=== PATIENT | female | born 1995 | race Caucasian/White ===

== ENCOUNTER 2020-07-08 15:45 | Emergency (ER) | payer BC, SELFPAY ==
[2020-07-08 16:07] VITALS: BP 104/79; PULSE 105; RESP 14; TEMP 36.4; O2SAT 100
--- NOTE | 2020-07-08 16:28 | ED.URI ---
HPI - URI/Sore Throat General Chief Complaint: Upper Respiratory Infection Stated Complaint: SORE THROAT Source: patient Mode of arrival: ambulatory Limitations: no limitations History of Present Illness HPI Narrative: 24-year-old female presents to [facility] with complaints of sore throat, dry cough, runny nose, nasal congestion, body aches and chills for the past 2 to 3 days. Patient's roommate currently has similar symptoms. Patient has been taking [id number] DayQuil and NyQuil with minimal relief. Patient is a non-smoker. Patient denies recent travel. Patient denies fever, nausea, vomiting, diarrhea, shortness of breath or wheezing. MD elicited complaint: cough, sore throat, rhinorrhea and nasal congestion Onset (ago): day(s) (3) Consistency: constant Able to tolerate fluids by mouth: Yes Treatments prior to arrival: cold medicine Related Data Home Medications Medication Instructions Recorded Confirmed norgestimate-ethinyl estradiol 1 tablet PO DAILY 07/08/20 07/08/20 [Tri-Sprintec (28)] Allergies Allergy/AdvReac Type Severity Reaction Status Date / Time No Known Drug Allergies Allergy Unknown none Verified 07/08/20 16:05 Review of Systems Constitutional: Constitutional: Reports chills, Denies fatigue, Denies fever(s) and Denies weakness ENT: Denies dysphagia, Denies dizziness, Denies epistaxis, Reports nasal congestion and Reports sore throat Comments: Rhinorrhea Respiratory: Respiratory: Denies chest congestion, Reports cough, Denies dyspnea and Denies wheezing Gastrointestinal: Gastrointestinal: Denies abdominal pain, Denies constipation, Denies diarrhea, Denies nausea and Denies vomiting Integumentary/Breasts: Skin/Breast: Denies rash Neurologic: Denies dizziness PMFSH Past Medical History Medical History (Updated 07/08/20 @ 16:35 by Yadira Matthews APRN) Irritable bowel disease Social History Social History (Updated 07/08/20 @ 16:30 by Yadira Matthews APRN) Smoking status: Never smoker Comments At time of signature, I agree with nursing past medical, surgical, social and family history. There is no relevant family history pertinent to the presenting complaint. Exam Const: General: no acute distress and alert Nutritional Appearance: well nourished Orientation/consciousness: patient oriented x3 HENMT: Head: normal to inspection Ears: TM's normal bilaterally General nose exam: Normal external nose present Face and sinus: sinuses nontender Mouth: Yes Normal oral and palatal mucosa present, Yes lip normal and Yes moist mucous membranes Throat: posterior oropharynx normal and uvula midline Other: Mild amount of clear postnasal drainage noted Neck: Neck: normal visual inspection and no lymphadenopathy Resp: Effort & Inspection: normal respiratory effort, not labored and not tachypneic Auscultation: clear to auscultation bilaterally, no rales and no wheezes Cardio: Rate: regular rate, not bradycardic and not tachycardic Rhythm: regular rhythm Heart sounds: no murmurs Skin: General skin exam: normal color, no jaundice and no pallor Rashes: no rashes Wounds: no wounds Neuro: General: patient oriented x3, moves all extremities and no meningeal signs Psych: Appearance: grossly normal Mental Status: mental status grossly normal Affect: normal affect Attitude: cooperative Thought content: Yes Normal thought content present Course Vital Signs Vital signs: Vital Signs Temperature 36.4 C L 07/08/20 16:07 Pulse Rate 105 H 07/08/20 16:07 Respiratory Rate 14 07/08/20 16:07 Blood Pressure 104/79 07/08/20 16:07 Pulse Oximetry 100 07/08/20 16:07 Temperature 36.4 C L 07/08/20 16:07 Pulse Rate 105 H 07/08/20 16:07 Respiratory Rate 14 07/08/20 16:07 Blood Pressure 104/79 07/08/20 16:07 Pulse Oximetry 100 07/08/20 16:07 MDM - URI/Sore Throat MDM Narrative Medical decision making narrative: Patient agrees to continue [id number] medic
== END 2020-07-08 16:44 | disposition home or self-care (01) ==
PROVIDERS: Emergency Provider Nurse Practitioner Family
DX: J06.9 Acute upper respiratory infection, unspecified (principal); Z20.828 Contact with and (suspected) exposure to other viral communicable diseases
CPT/HCPCS: 87081; 87880; 99213; G0463

== ENCOUNTER 2020-07-10 06:47 | Outpatient (NON) | payer BC, SELFPAY ==
[2020-07-10 22:14] LABS: SARS-CoV-2 RNA PCR Positive
== END 2020-07-10 06:48 ==
LOC: ANHCOVIDDT 06:54
PROVIDERS: Visit Provider Nurse Practitioner Family
DX: U07.1 COVID-19 (principal)
CPT/HCPCS: 87635; C9803; U0003

== ENCOUNTER 2021-07-19 18:21 | Observation (INO) | payer BC, SELFPAY ==
--- NOTE | ~2021-07-19 | CT_ITS ---
EXAMINATION: CT soft tissue neck w con EXAM DATE: 07/19/2021 22:31 INDICATION: Swelling of left tonsilar area . TECHNIQUE: Spiral CT of the neck was performed following intravenous injection of 75 mL Omnipaque 350 . Axial, coronal and sagittal images were reviewed. The dose-length product (DLP) for this examinat ion was 295.12 mGy-cm. The exposure was tailored according to patient size (auto mA exposure control ), and iterative reconstruction (ASIR) was used as additional dose reduction technique. There is no prior study for comparison. FINDINGS: The right tonsil is enlarged and heterogeneous in density, phlegmonous and possibly early d eveloping abscess but no rim enhancement or well organized abscess, no definite drainable collection at this time. Fat stranding extends down the right side of the oropharynx, causing mass effect, colla pse of the right vallecula. There is mild edema of the right side of the epiglottis. The aryepiglotti c folds are normal in appearance. Reactive right-sided internal jugular chain lymphadenopathy, with o ne of the larger nodes measuring 1.8 x 1.1 cm. Parapharyngeal fat is clear. No prevertebral abscess or thickening. The thyroid gland is unremarkable . The submandibular and parotid glands are symmetric. The superior mediastinum is unremarkable. The opacified vasculature is patent. The orbits are unremarkable. Visualized sinuses and mastoi d air cells are well aerated. Lung apices are clear. There is cervical spondylosis. IMPRESSION: Enlarged, phlegmonous right tonsil without definite focal drainable abscess at this time. Edema extending inferiorly along the right side of pharynx, with mildly edematous right side of epig lottis. Reactive right IJ lymphadenopathy. Reviewed, dictated and finalized at location A. [employer] IMPRESSION: Enlarged, phlegmonous right tonsil without definite focal drainable abscess at this time. Edema extending inferiorly along the right side of phary nx, with mildly edematous right side of epiglottis. Reactive right IJ lymphaden opathy.
[2021-07-19 18:23] VITALS: BP 120/97; PULSE 109; RESP 20; TEMP 37; O2SAT 98
[2021-07-19 18:37] LABS: Basophils Percent Auto 0.1 % (0.2-1.2); Hematocrit 41.2 % (37.0-47.0); Hemoglobin 13.9 g/dL (12.0-15.0); Immature Granulocyte Absolute 0.05 K/mm3 (0.00-0.031); Immature Granulocyte Percent A 0.4 % (0-0.5); Lymphocytes Absolute Auto 0.32 K/mm3 (0.9-3.2); Lymphocytes Percent Auto 2.3 % (18.3-44.2); Mean Corpuscular HGB Conc 33.7 g/dl (32-36); Mean Corpuscular Hemoglobin 31.4 pg (26-34); Mean Platelet Volume 10.1 fl (7.4-10.4); Monocytes Percent Auto 6.9 % (2.6-8.5); Neutrophils Absolute Auto 12.7 K/mm3 (1.3-6.7); Neutrophils Percent Auto 90.3 % (45.5-73.1); Platelet Count Result 182 k/mm3 (150-375); Red Blood Count 4.43 M/mm3 (4.2-5.4); Red Cell Distribution Width 11.9 % (11.5-14.5); White Blood Count 14.1 K/mm3 (4.5-10.0)
[2021-07-19 18:52] LABS: Alanine Aminotransferase 57 U/L (4-35); Albumin Level 5.1 g/dL (3.5-5.1); Alkaline Phosphatase 83 U/L (38-126); Anion Gap 12 mmol/L (8-16); Aspartate Amino Transferase 40 U/L (14-36); Bilirubin,Total 0.7 mg/dL (0.2-1.3); Blood Urea Nitrogen 8 mg/dL (7-17); Calcium 9.3 mg/dL (8.4-10.2); Carbon Dioxide 20 mmol/L (22-30); Chloride 99 mmol/L (98-107); Estimated CRCL calculation 98 ml/min; Estimated Glomerular Filt Rate > 60; Glucose 111 mg/dL (65-110); Potassium 3.7 mmol/L (3.4-5.0); Sodium 131 mmol/L (137-145)
[2021-07-19 20:33] VITALS: BP 121/73; PULSE 111; RESP 18; TEMP 36.5; O2SAT 100
[2021-07-19 20:46] VITALS: BP 116/81; PULSE 104; RESP 16; TEMP 37.6; O2SAT 98
--- NOTE | 2021-07-19 21:33 | ED.GENADULT ---
HPI - General Adult General Chief complaint: Fever Stated complaint: fever, swollen lymph nodes Time Seen by Provider: 07/19/21 21:22 History of Present Illness HPI narrative: Patient 22-year-old female presents the emergency department with chief complaint of sore throat fever and body aches. The patient reports today she had a high fever reports pain in the right side of her oropharynx and the tonsil area patient reports that she has exudate on her tonsils reports that she also has swollen lymph nodes. Patient states is not improved by anything reports is worsened whenever she swallows. The patient reports she was seen in urgent care had a Covid test that was negative strep test that was negative and also was tested for mono. The patient states that all these were negative but she still continue to have a fever and the patient was sent to the emergency department for further evaluation. Related Data Home Medications Medication Instructions Recorded Confirmed norgestimate-ethinyl estradiol 1 tablet PO DAILY 07/08/20 07/08/20 [Tri-Sprintec (28)] Allergies Allergy/AdvReac Type Severity Reaction Status Date / Time No Known Drug Allergies Allergy Unknown none Verified 07/08/20 16:05 Review of Systems Review of Systems: A 10 system review of systems was completed on the patient and is negative except for what is stated in the HPI. Nursing and ancillary documentation was reviewed. PMFSH Past Medical History Medical History Irritable bowel disease Social History Social History Smoking status: Never smoker Comments Immune deficiency Exam Narrative: GENERAL: Well-appearing, well-nourished, and in no acute distress. HEAD: Normocephalic, atraumatic. EYES: PERRLA and EOMI. ENT: Nares clear, no rhinorrhea or epistaxis. Mucous membranes moist. There is exudate present on the right tonsil with slight increase size of the right tonsillar area. NECK: Supple. Anterior cervical lymphadenopathy CHEST: Clear to auscultation. No respiratory distress. HEART: Regular rate and rhythm. No murmur heard. Normal peripheral pulses. ABDOMEN: Soft, nontender, nondistended, normal active bowel sounds. EXTREMITIES: Normal range of motion. No edema. SKIN: Warm, dry, no rash. NEURO: No focal deficits. Alert and oriented x3. PSYCH: Normal mood and affect. Course Course Emergency Course: CT scan showed evidence of phlegmon without evidence of peritonsillar abscess. The case was discussed with Dr. Fernandez who is on-call for otolaryngology. The patient was given the option as to observation overnight with IV antibiotics versus outpatient follow-up. Patient at this time is opted for inpatient therapy. Vital Signs Vital signs: Vital Signs Temperature 37.0 C 07/19/21 18:23 Pulse Rate 109 H 07/19/21 18:23 Respiratory Rate 20 07/19/21 18:23 Blood Pressure 120/97 H 07/19/21 18:23 Pulse Oximetry 98 07/19/21 18:23 Temperature 37.6 C 07/19/21 20:46 Pulse Rate 104 H 07/19/21 20:46 Respiratory Rate 16 07/19/21 20:46 Blood Pressure 116/81 07/19/21 20:46 Pulse Oximetry 98 07/19/21 20:46 Medical Decision Making Vital Signs Vital Signs: Vital Signs Temperature 37.0 C 07/19/21 18:23 Pulse Rate 109 H 07/19/21 18:23 Respiratory Rate 20 07/19/21 18:23 Blood Pressure 120/97 H 07/19/21 18:23 Pulse Oximetry 98 07/19/21 18:23 Temperature 37.6 C 07/19/21 20:46 Pulse Rate 104 H 07/19/21 20:46 Respiratory Rate 16 07/19/21 20:46 Blood Pressure 116/81 07/19/21 20:46 Pulse Oximetry 98 07/19/21 20:46 Lab Data Result diagrams: 07/19/21 18:30 07/19/21 18:30 Labs: Lab Results 07/19/21 07/19/21 07/19/21 Range/Units 18:30 18:30 21:51 WBC 14.1 H (4.5-10.0) K/mm3 RBC 4.43 (4.2-5.4) M/mm3 Hgb 13.9 (12.0-15.0) g
[2021-07-19] MEDS: KETOROLAC 30 MG/ML VIAL (*BKC) IV PUSH (22:00)
[2021-07-19] MEDS: SODIUM CHLORIDE 0.9% IV 1,000 ML 999 ML IV CONT (22:00)
[2021-07-19] MEDS: ONDANSETRON INJ 4 MG/2 ML VIAL IV PUSH (22:00)
[2021-07-19] MEDS: DEXAMETHASONE SOD PHOS INJ 4 MG/ML VIAL 10 MG IV PUSH (22:32)
[2021-07-19] MEDS: AMPICILLIN SULB 3 GM/NS 100 ML 3 GM/100 ML VIAL IVPB (22:32)
[2021-07-19 23:02] VITALS: BP 109/71; PULSE 84; RESP 16; O2SAT 98
--- NOTE | 2021-07-19 23:43 | PM.IMHP ---
H&P: HPI History of Present Illness Date/Time: 07/19/21 23:43 Chief Complaint: Sore throat Narrative: This is a 25-year-old female with no significant past medical history patient presented to emergency room after she was seen and evaluated at a local urgent care and she was noted to have right tonsil are enlargement and exudate and difficulty swallowing with pain fevers and chills. Preliminary workup was significant for CT of the neck soft tissue enlarged, phlegmonous right tonsil without definite focal drainable abscess at this time,edema extending inferiorly along the right side of pharynx, with mildly edematous right side of epiglottis, reactive right IJ lymphadenopathy. This has been happening for the last 2 days or so. Decision has been made to admit the patient for further assessment evaluation and treatment. Review of Systems Review of Systems: Sore throat pain with swallowing chills and fevers of 2 day duration Constitutional: Constitutional: Reports chills, Denies fatigue, Reports fever(s), Denies lethargy, Denies night sweats and Denies weakness Eyes: Eyes: Denies change in vision ENT: Denies change in voice, Denies dysphagia, Denies vertigo, Denies dizziness, Denies ear discharge, Denies nasal congestion, Denies nasal discharge, Denies nasal obstruction and Reports odynophagia Comments: Sore throat Cardiovascular: Cardiovascular: Denies irregular heart rhythm, Denies claudication, Denies leg edema, Denies lightheadedness, Denies radiating jaw, neck or arm pain, Denies palpitations, Denies dyspnea, Denies dyspnea on exertion and Denies orthopnea Respiratory: Respiratory: Denies cough, Denies excessive phlegm production, Denies dyspnea and Denies wheezing Gastrointestinal: Gastrointestinal: Denies abdominal pain, Denies dyspepsia, Denies heartburn, Denies diarrhea, Denies nausea and Denies vomiting Genitourinary: Genitourinary: Reports no additional female genitourinary complaints and Reports as per HPI Musculoskeletal: Musculoskeletal: Denies arthralgias, Denies joint swelling, Denies muscle weakness, Denies neck pain and Denies stiffness Integumentary/Breasts: Skin/Breast: Denies rash Neurologic: Denies focal weakness, Denies Sensory deficit (Neuro) and Denies weakness Psychiatric: Psychiatric: Reports no additional psychiatric complaints and Reports as per HPI Endocrine: Endocrine: Reports no additional endocrine complaints and Reports as per HPI Hematologic/Lymphatic: Hematologic/Lymphatic: Reports no additional hematologic/lymphatic complaints and Reports as per HPI Allergic/Immunologic: Allergic/Immunologic: Reports no additional allergic/immunologic complaints and Reports as per HPI [facility] Past Medical History Medical History Irritable bowel disease Social History Social History Smoking status: Never smoker Alcohol intake: current Drinks per week: 2 Substance use: never Spiritual care concerns: No Meds Home Medications and Allergies Home Medications Medication Instructions Recorded Confirmed Type No Home Medications 07/20/21 07/20/21 History Allergies Allergy/AdvReac Type Severity Reaction Status Date / Time No Known Drug Allergies Allergy Unknown none Verified 07/08/20 16:05 Vital Signs Vital Signs - 24 hr 07/19/21 18:23 07/19/21 20:33 07/19/21 20:46 Temperature 98.6 F 97.7 F 99.6 F Pulse Rate 109 H 111 H 104 H Respiratory Rate 20 18 16 Blood Pressure 120/97 H 121/73 116/81 Pulse Oximetry 98 100 98 07/19/21 23:02 Temperature Pulse Rate 84 Respiratory Rate 16 Blood Pressure 109/71 Pulse Oximetry 98 Exam Narrative: Patient is sitting in [place] Const: General: cooperative, comfortable, no acute distress, well developed, alert, awake, Physically active and other (Well-appearing) Nutritional Appearance: thin Orientation/consciousness:
[2021-07-20 01:11] VITALS: BP 110/65; PULSE 75; RESP 16; O2SAT 100
--- NOTE | 2021-07-20 01:12 | ADMGEN ---
This patient, Clarice Rhodes, was admitted to 2 Medical Room 243-01. Patient/family oriented to hospital policies and general routines including ID bracelet, bed and alarms, visiting hours, pain management, procedures, bathroom and other care routines, personal items, smoking policy, room service/diet, and visiting hours. Information on how to activate the Rapid Response Team has been discussed. Patient/Family are encouraged to report perceived risks to care and to ask questions if they do not understand what they are told or what they should do.
[2021-07-20 01:15] VITALS: BMI 19.2
[2021-07-20 01:16] VITALS: BP 109/66; PULSE 90; RESP 18; TEMP 36.2; O2SAT 99
[2021-07-20] MEDS: SODIUM CHLORIDE 0.9% IV 1,000 ML 125 ML IV CONT (01:24)
[2021-07-20 03:50] VITALS: BP 109/56; PULSE 80; RESP 18; TEMP 36.1; O2SAT 100
[2021-07-20] MEDS: AMPICILLIN SULB 3 GM/NS 100 ML 3 GM/100 ML VIAL IVPB ×3 (03:53→15:56)
[2021-07-20 05:55] LABS: Basophils Percent Auto 0.1 % (0.2-1.2); Hematocrit 38.2 % (37.0-47.0); Hemoglobin 12.6 g/dL (12.0-15.0); Immature Granulocyte Absolute 0.06 K/mm3 (0.00-0.031); Immature Granulocyte Percent A 0.5 % (0-0.5); Lymphocytes Percent Auto 2.5 % (18.3-44.2); Mean Corpuscular Volume 93.9 fl (80-100); Mean Platelet Volume 10.9 fl (7.4-10.4); Monocytes Absolute Auto 0.2 K/mm3 (0.1-0.6); Monocytes Percent Auto 1.7 % (2.6-8.5); Neutrophils Absolute Auto 11.3 K/mm3 (1.3-6.7); Neutrophils Percent Auto 95.2 % (45.5-73.1); Platelet Count Result 178 k/mm3 (150-375); Red Blood Count 4.07 M/mm3 (4.2-5.4); Red Cell Distribution Width 11.9 % (11.5-14.5); White Blood Count 11.9 K/mm3 (4.5-10.0)
[2021-07-20 06:10] LABS: Anion Gap 8 mmol/L (8-16); Blood Urea Nitrogen 8 mg/dL (7-17); Calcium 8.8 mg/dL (8.4-10.2); Carbon Dioxide 24 mmol/L (22-30); Chloride 103 mmol/L (98-107); Estimated CRCL calculation 113 ml/min; Estimated Glomerular Filt Rate > 60; Glucose 134 mg/dL (65-110); Potassium 4.4 mmol/L (3.4-5.0); Sodium 135 mmol/L (137-145)
[2021-07-20] MEDS: methylPREDNISolone SOD SUCC 125 MG VIAL 60 MG IV PUSH ×2 (06:10→14:39)
[2021-07-20 07:45] LABS: Alanine Aminotransferase 47 U/L (4-35); Albumin Level 4.5 g/dL (3.5-5.1); Alkaline Phosphatase 66 U/L (38-126); Aspartate Amino Transferase 34 U/L (14-36); Bilirubin,Total 0.5 mg/dL (0.2-1.3)
[2021-07-20] MEDS: MORPHINE SULFATE (*CRX) 2 MG/ML INJ IV PUSH (09:02)
--- NOTE | 2021-07-20 09:20 | PM.IMPN ---
Progress Note: A&P Assessment and Plan (1) Peritonsillar cellulitis: Code(s): J36 - Peritonsillar abscess Status: Acute Assessment and Plan: Patient is a 25-year-old woman with no chronic past medical history, who presented emergency room for right throat swelling and pain and difficulty with swallowing with associated fevers and chills which began on Sunday07/18/2021. The patient was seen at urgent care prior to arrival and stated she had a negative strep, mono, and COVID swab and they sent her to the ER for further evaluation. Labs showed leukocytosis at 14,000, with elevated neutrophil count. Elevated LFTs with an ALT of 40, LFT 57. CT soft tissue neck showed Enlarged, phlegmonous right tonsil without definite focal drainable abscess at this time. Edema extending inferiorly along the right side of pharynx, with mildly edematous right side of epiglottis. Reactive right IJ lymphadenopathy. She was admitted into the hospital for IV antibiotics, IV steroids, and ENT consultation. Continue with IV Unasyn until cultures return Will order repeat strep and mono testing you had elevated LFTs Continue with IV Solu-Medrol Pain control Appreciate ENT consultation Continue monitoring. (2) Pharyngitis: Qualifiers: Pharyngitis/tonsillitis etiology: unspecified etiology Qualified Code(s): J02.9 - Acute pharyngitis, unspecified Code(s): J02.9 - Acute pharyngitis, unspecified Status: Acute Assessment and Plan: See above (3) Odynophagia: Code(s): R13.10 - Dysphagia, unspecified Status: Acute Assessment and Plan: See above Time Spent With Patient Time with patient: 25 - 35 minutes Subjective Date/time seen: 07/20/21 09:20 Interval history: Date of service 07/20/2021: Patient reports improvement of her swelling and pain to her right neck and throat. She said she noticed this swelling improve after receiving steroids in the emergency room yesterday. She slept well last night, then reports a little bit of increased pain to her right neck this morning for which she asked for some pain medications. She denies any more fevers or chills. She states at an outside urgent care she had been swabbed for strep, mono and COVID and reported being negative for all 3. She denies any chest pain, shortness of breath, cough, nausea, vomiting, abdominal pain, leg swelling, calf pain, feeling as if her throat was closing, trouble swallowing, or any other symptoms at this time. Review of Systems Review of Systems: All systems reviewed & are unremarkable except as noted in HPI and below Exam Narrative: General: 25-year-old woman sitting up in bed watching TV. Appears comfortable. In no acute distress. HEENT: Some mild edema noted to right lower neck with LAD enlargement. No erythema or warmth noted. Right tonsil with erythema noted. Uvula midline and nonerythematous. Skin: No jaundice or cyanosis. Good skin turgor. Respiratory: Lungs are clear to auscultation bilaterally. No bony chest wall tenderness. Cardiovascular: The heart has a regular rate and rhythm without murmur. Lower extremities: No lower extremity edema. Distal pulses are easily palpated. No calf tenderness to palpation. Gastrointestinal: The abdomen is soft, nontender and nondistended with active bowel sounds. Psychiatric: Lucid and oriented. Memory intact. Neurologic: No focal deficits. Speech is clear. No facial drooping. Objective Data Vital Signs Vital Signs: Vital Signs - 24 hr 07/19/21 18:23 07/19/21 20:33 07/19/21 20:46 Temperature 98.6 F 97.7 F 99.6 F Pulse Rate 109 H 111 H 104 H Respiratory Rate 20 18 16 Blood Pressure 120/97 H 121/73 116/81 Pulse Oximetry 98 100 98 07/19/21 23:02 07/20/21 01:11 07/20/21 01:16 Temperature 97.1 F L Pulse Rate 84 75 90 Respiratory Rate 16 16 18 Blood Pressure 109/71 110/65 109/66 Pulse Oximetry 98 100 99 07/20/21 03:50 Temperature 96.9
[2021-07-20 14:00] VITALS: BP 112/62; PULSE 67; RESP 16; TEMP 36.6; O2SAT 100
[2021-07-20] MEDS: SODIUM CHLORIDE 0.9% IV 1,000 ML 65 ML IV CONT (14:38)
--- NOTE | 2021-07-20 17:07 | PM.DS ---
DS: Admitting Diagnosis Discharge Date 07/20/21 Admitting Diagnosis Neck swelling/Sore throat DS: Discharge Diagnosis Discharge Diagnosis (1) Peritonsillar cellulitis: Code(s): J36 - Peritonsillar abscess Status: Acute Assessment and Plan: Patient is a 25-year-old woman with no chronic past medical history, who presented emergency room for right throat swelling and pain and difficulty with swallowing with associated fevers and chills which began on Sunday07/18/2021. The patient was seen at urgent care prior to arrival and stated she had a negative strep, mono, and COVID swab and they sent her to the ER for further evaluation. Labs showed leukocytosis at 14,000, with elevated neutrophil count. Elevated LFTs with an ALT of 40, LFT 57. CT soft tissue neck showed Enlarged, phlegmonous right tonsil without definite focal drainable abscess at this time. Edema extending inferiorly along the right side of pharynx, with mildly edematous right side of epiglottis. Reactive right IJ lymphadenopathy. She was admitted into the hospital for IV Unsyn abx, IV steroids, and ENT consultation. Strep swab negative ENT evaluated the patient and preformed a laryngoscopy which showed normal nasal passages, normal nasopharynx, normal pharyngeal and laryngeal examination other than edematous and exudative right tonsil. Airway well patent. ENT felt comfortable after evaluation and examination to discharge the patient home with 10 days of Augmentin and recommended Medrol Dose Pack steroid taper. The patient is otherwise feeling much better without any concerns. Follow up with PCP and given ENT information if she has any issues or concerns or would like follow up. She understands and agrees with the plan. All questions answered. Stable for discharge. (2) Pharyngitis: Qualifiers: Pharyngitis/tonsillitis etiology: unspecified etiology Qualified Code(s): J02.9 - Acute pharyngitis, unspecified Code(s): J02.9 - Acute pharyngitis, unspecified Status: Acute Assessment and Plan: See above (3) Odynophagia: Code(s): R13.10 - Dysphagia, unspecified Status: Acute Assessment and Plan: See above DS: Summary Hospital Course Hospital Course: See above Status at Discharge Cognitive/behavioral status at discharge: Stable, improved. Time Spent with Patient Time attestation: Total time spent providing and/or coordinating discharge services: 40 Time spent: Greater than 30 minutes Exam Narrative: General: 25-year-old woman sitting up in bed watching TV. Appears comfortable. In no acute distress. HEENT: Some mild edema noted to right lower neck with LAD enlargement. No erythema or warmth noted. Right tonsil with erythema noted. Uvula midline and nonerythematous. Skin: No jaundice or cyanosis. Good skin turgor. Respiratory: Lungs are clear to auscultation bilaterally. No bony chest wall tenderness. Cardiovascular: The heart has a regular rate and rhythm without murmur. Lower extremities: No lower extremity edema. Distal pulses are easily palpated. No calf tenderness to palpation. Gastrointestinal: The abdomen is soft, nontender and nondistended with active bowel sounds. Psychiatric: Lucid and oriented. Memory intact. Neurologic: No focal deficits. Speech is clear. No facial drooping. DS: Data Data Completed and Pending Labs on day of discharge: Labs from last 24 hours 07/20/21 07/20/21 07/20/21 09:11 05:09 05:09 WBC RBC Hgb Hct MCV MCH MCHC RDW Plt Count MPV Immature Gran % (Auto) Neut % (Auto) Lymph % (Auto) Parker % (Auto) Eos % (Auto) Baso % (Auto) Lymph # (Auto) Parker # (Auto) Eos # (Auto) Baso # (Auto) Abs Immat Gran (auto) Absolute Neuts (auto) Absolute Nucleated RBC Nucleated RBC % Sodium 135 L Potassium 4.4 Chloride 103 Carbon Dioxide 24 Anion Gap 8 BUN
--- NOTE | 2021-07-20 17:13 | WPDPROCEDUR ---
Procedures Laryngoscopy Laryngoscopy Comments: flexible laryngoscopy performed. Normal nasal passages, normal nasopharynx, normal pharyngeal and laryngeal examination other than edematous and exudative right tonsil. Airway well patent.
--- NOTE | 2021-07-20 17:16 | WPDCN ---
Assessment and Plan Assessment and plan (1) Peritonsillar cellulitis: Code(s): J36 - Peritonsillar abscess Status: Acute Assessment and Plan: Ok to discharge patient. Follow up with me for any and all acute issues. discharge on 10 days of augmentin and a medrol taper, steroids to start tomorrow. Risks and benefits discussed in great detail including failure of therapy and the need for drainage/opening of right peritonsillar space. 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 Patient reports vas improvement in symptoms following iv abx and steroids. ENT consulted for further evaluation and treatment. [facility] Past Medical History Medical History Irritable bowel disease Social History Social History Smoking status: Never smoker Alcohol intake: current Drinks per week: 2 Substance use: never Spiritual care concerns: No Meds Home Medications and Allergies Home Medications Medication Instructions Recorded Confirmed Type No Home Medications 07/20/21 07/20/21 History Allergies Allergy/AdvReac Type Severity Reaction Status Date / Time No Known Drug Allergies Allergy Unknown none Verified 07/08/20 16:05 Vital Signs Vital Signs - 24 hr 07/19/21 18:23 07/19/21 20:33 07/19/21 20:46 Temperature 37.0 C 36.5 C 37.6 C Pulse Rate 109 H 111 H 104 H Respiratory Rate 20 18 16 Blood Pressure 120/97 H 121/73 116/81 Pulse Oximetry 98 100 98 07/19/21 23:02 07/20/21 01:11 07/20/21 01:16 Temperature 36.2 C L Pulse Rate 84 75 90 Respiratory Rate 16 16 18 Blood Pressure 109/71 110/65 109/66 Pulse Oximetry 98 100 99 07/20/21 03:50 07/20/21 14:00 Temperature 36.1 C L 36.6 C Pulse Rate 80 67 Respiratory Rate 18 16 Blood Pressure 109/56 L 112/62 Pulse Oximetry 100 100 Exam HENMT: Other: Throat significant for edematous right tonsil, exudative as well. Mild right peritonsillar edema. Results Labs CBC & Chem 7: 07/20/21 05:09 07/20/21 05:09 Labs: Short CBC 07/19/21 07/20/21 Range/Units 18:30 05:09 WBC 14.1 H 11.9 H (4.5-10.0) K/mm3 Hgb 13.9 12.6 (12.0-15.0) g/dL Hct 41.2 38.2 (37.0-47.0) % Plt Count 182 178 (150-375) k/mm3 [facility] 07/19/21 07/20/21 18:30 05:09 Sodium 131 L 135 L Potassium 3.7 4.4 Chloride 99 103 Carbon Dioxide 20 L 24 BUN 8 8 Creatinine 0.60 L 0.50 L Glucose 111 H 134 H Calcium 9.3 8.8 Liver Function 07/19/21 07/20/21 Range/Units 18:30 05:09 Total Bilirubin 0.7 0.5 (0.2-1.3) mg/dL Direct Bilirubin 0.0 (0-0.3) mg/dL AST 40 H 34 (14-36) U/L ALT 57 H 47 H (4-35) U/L Alkaline Phosphatase 83 66 (38-126) U/L Albumin 5.1 4.5 (3.5-5.1) g/dL
== END 2021-07-20 18:39 | disposition home or self-care (01) ==
LOC: ANHED 23:01 → ANH2MED 07-20 00:12
PROVIDERS: Emergency Medicine; Physician Assistant; Admitting Provider Internal Medicine; Emergency Provider Emergency Medicine; Visit Provider Family Medicine
DX: J36 Peritonsillar abscess (principal); R13.10 Dysphagia, unspecified
CPT/HCPCS: 31575; 36415; 70491; 80048; 80053; 80076; 81025; 83605; 85025; 87040; 87081; 87880; 96361; 96365; 96366; 96375; 96376; 99285; G0378; J0295; J1100; J1885; J2270; J2405; J2930; J7030; Q9967

== ENCOUNTER 2024-07-06 03:09 | Inpatient (IN) | payer BC, SELFPAY ==
[2024-07-06] VITALS (238 sets, daily range): BP systolic 80–141; BP diastolic 44–100; PULSE 26–245; TEMP 36.2–36.3; O2SAT 73–100; BMI 30.2
[2024-07-06] MEDS: LACTATED RINGERS 1,000 ML 125 ML IV CONT ×4 (10:40→18:24)
[2024-07-06] MEDS: fentaNYL CITRATE INJ (*CRX) 100 MCG/2 ML VIAL 50 MCG IV PUSH (10:40)
[2024-07-06 11:48] LABS: Basophils Percent Auto 0.3 % (0.2-1.2); Eosinophils Absolute Auto 0.1 K/mm3 (0-0.3); Eosinophils Percent Auto 0.6 % (0-4.4); Hematocrit 38.3 % (37.0-47.0); Hemoglobin 12.1 g/dL (12.0-15.0); Immature Granulocyte Absolute 0.03 K/mm3 (0.00-0.031); Immature Granulocyte Percent A 0.3 % (0-0.5); Immature Platelet Fraction Pct 22.9 % (0.9-11.2); Lymphocytes Absolute Auto 1.42 K/mm3 (0.9-3.2); Lymphocytes Percent Auto 15.9 % (18.3-44.2); Mean Corpuscular HGB Conc 31.6 g/dl (32-36); Mean Corpuscular Hemoglobin 27.4 pg (26-34); Mean Corpuscular Volume 86.8 fl (80-100); Mean Platelet Volume 14.2 fl (7.4-10.4); Monocytes Absolute Auto 0.8 K/mm3 (0.1-0.6); Monocytes Percent Auto 8.4 % (2.6-8.5); Neutrophils Absolute Auto 6.6 K/mm3 (1.3-6.7); Neutrophils Percent Auto 74.5 % (45.5-73.1); Platelet Count Result 169 k/mm3 (150-375); Red Blood Count 4.41 M/mm3 (4.2-5.4); Red Cell Distribution Width 13.3 % (11.5-14.5); White Blood Count 8.9 K/mm3 (4.5-10.0)
[2024-07-06 12:16] LABS: Rapid Plasma Reagin Non-Reactive (NonReactive)
--- NOTE | 2024-07-06 12:29 | WPDANESEPP ---
Anes - Eval Pre Procedure Procedure: Labor epidural Date/Time: 07/06/24 12:29 Surgeon: Joaquim Preop Diagnosis: Pain during labor Pre Op Diagnosis: Contractions Patient Data Age: 28 Gender: F Height: Weight: Last Vital Signs Pulse 70 07/06/24 12:29 BP 123/72 07/06/24 12:29 Pulse Ox 100 07/06/24 12:27 Allergies Allergy/AdvReac Type Severity Reaction Status Date / Time No Known Drug Allergies Allergy Unknown none Verified 07/08/20 16:05 Home Medications Medication Instructions Recorded Confirmed Type docosahexaenoic acid 200 mg capsule 1 mg PO DAILY 07/06/24 07/06/24 History Laboratory Tests 07/06/24 11:34 WBC 8.9 K/mm3 (4.5-10.0) RBC 4.41 M/mm3 (4.2-5.4) Hgb 12.1 g/dL (12.0-15.0) Hct 38.3 % (37.0-47.0) MCV 86.8 fl (80-100) MCH 27.4 pg (26-34) MCHC 31.6 L g/dl (32-36) RDW 13.3 % (11.5-14.5) Plt Count 169 k/mm3 (150-375) MPV 14.2 H fl (7.4-10.4) Immature Gran % (Auto) 0.3 % (0-0.5) Neut % (Auto) 74.5 H % (45.5-73.1) Lymph % (Auto) 15.9 L % (18.3-44.2) [place] % (Auto) 8.4 % (2.6-8.5) Eos % (Auto) 0.6 % (0-4.4) Baso % (Auto) 0.3 % (0.2-1.2) Lymph # (Auto) 1.42 K/mm3 (0.9-3.2) [place] # (Auto) 0.8 H K/mm3 (0.1-0.6) Eos # (Auto) 0.1 K/mm3 (0-0.3) Baso # (Auto) 0.0 K/mm3 (0.0-0.1) Abs Immat Gran (auto) 0.03 K/mm3 (0.00-0.031) Absolute Neuts (auto) 6.6 K/mm3 (1.3-6.7) Absolute Nucleated RBC 0.000 K/mm3 (0.0-0.012) Nucleated RBC % 0.0 % (0.0-0.2) % Immature Plt Fraction 22.9 H % (0.9-11.2) RPR Non-reactive (NonReactive) HIV 1&2 Ab/P24 Ag 4thGn Pending Patient hx anesthesia problems: none Family hx anesthesia problems: none Results Review: All pre-operative results and documents have been reviewed as part of the pre-operative evaluation. [facility] Past Medical History Medical History Irritable bowel disease Social History Social History Smoking status: Never smoker Alcohol intake: current Drinks per week: 2 Substance use: never Spiritual care concerns: No Exam Day of Procedure 07/06/24 12:29 Patient weight: overweight Heart: regular rate and rhythm Lungs: clear to auscultation and normal air movement Airway: Mallampati scale class II Neurological: alert and oriented
[2024-07-06 12:37] LABS: HIV 1/2 Ab P24 Ag Result Negative (Negative)
--- NOTE | 2024-07-06 20:12 | PM.OBPNLAB ---
Pain Control Date/time seen: 07/06/24 20:12 Pelvic Exam Dilation (cm): 7 Effacement (%): 90 station: 0 Amniotic membrane status: Ruptured Contractions Monitor mode: Internal Status status: Category ll Comments: prolonged decel following repositioning, improved with position changes Assessment and Plan Assessment: active labor Plan: continuous present management
--- NOTE | 2024-07-06 20:14 | WPDOBADMIT ---
Obstetrics - Admit Note Admission Note: record reviewed. No pertinent additions to the history and/or any subsequent changes in the physical findings that are not consistent with the expected course of the were found. Patient presented in latent labor at 38w6d. Made change to 6cm, rare late decels; augmented with AROM at 6cm Additions to the history and/or subsequent changes in the physical findings follow. None.
[2024-07-06] MEDS: OXYTOCIN 30 UNITS/NS 500 ML 30 UNITS/500 ML BAG 999 UNITS IV CONT (21:45)
--- NOTE | 2024-07-06 22:01 | PM.OBPRVD ---
OB - Vaginal Delivery Note Procedure Delivery date: 07/06/24 Delivery augmentation: Rupture of Membranes Delivery monitor: Internal FHT and Internal Uterine Route of delivery: Episiotomy description: None Laceration Description: Perineal - 2nd Degree and Labial (right) Delivery repair: vicryl Specimen: No Anesthesia type: Epidural Disposition: Floor Complications: No immediate complications Narrative: See H&P and notes for details on patient's admission and labor. She progressed to complete cervical dilation and at the appropriate time began pushing. With adequate expulsive efforts by the mother, the baby's head was delivered without difficulty. Nuchal cord was present x1 and was delivered through. The baby's left shoulder was anterior and delivered under the pubic symphysis without difficulty. The posterior shoulder and the rest of the baby delivered without difficulty. The umbilical cord was doubly clamped and cut after 60 seconds of delayed cord clamping. Care of the was then assumed by the nursing staff. Baby Date of : 07/06/24 Gestational Age by Date: 38 Infant gender: Male presentation: vertex position: Left Occiput Anterior Placenta delivery description: Expressed Cord Vessel Description: 3 Vessels, Nuchal Cord and Delayed Cord Clamping
[2024-07-06] MEDS: OXYTOCIN 30 UNITS/NS 500 ML 30 UNITS/500 ML BAG 125 UNITS IV CONT (22:15)
[2024-07-06] MEDS: BENZOCAINE 20% AER SPR (*SP) 56 GM CAN 1 SPRAY TOPICAL (23:43)
[2024-07-06] MEDS: WITCH HAZEL 40 PADS 1 PAD TOPICAL (23:43)
[2024-07-07] VITALS (9 sets, daily range): BP systolic 98–133; BP diastolic 60–88; PULSE 69–94; RESP 16–17; TEMP 36.5–37.5; O2SAT 99–100
[2024-07-07] MEDS: IBUPROFEN 600 MG TABLET PO ×3 (00:53→16:20)
--- NOTE | 2024-07-07 05:07 | P.PNOB_ITS ---
OB - PN: Subj Subjective Date/time seen: 07/07/24 05:07 Interval history: PPD#1 Doing well, pain well controlled Tolerating general diet Voiding without issue , latching well, discussed hand expression of colostrum OB - PN: Obj Data Labs 07/06/24 11:34 Labs: Laboratory Results - last 24 hr 07/06/24 11:34 WBC 8.9 RBC 4.41 Hgb 12.1 Hct 38.3 MCV 86.8 MCH 27.4 MCHC 31.6 L RDW 13.3 Plt Count 169 MPV 14.2 H Immature Gran % (Auto) 0.3 Neut % (Auto) 74.5 H Lymph % (Auto) 15.9 L [place] % (Auto) 8.4 Eos % (Auto) 0.6 Baso % (Auto) 0.3 Lymph # (Auto) 1.42 [place] # (Auto) 0.8 H Eos # (Auto) 0.1 Baso # (Auto) 0.0 Abs Immat Gran (auto) 0.03 Absolute Neuts (auto) 6.6 Absolute Nucleated RBC 0.000 Nucleated RBC % 0.0 % Immature Plt Fraction 22.9 H RPR Non-reactive HIV 1&2 Ab/P24 Ag 4thGn Negative Blood Type O Positive Antibody Screen Negative OB - PN A/P Plan day: 1 Plan: routine care Time Spent With Patient Time: Total time spent is greater than 50% in coordination of care (as documented) at patient's floor/unit and/or counseling patient: Review of Systems Review of Systems: All systems reviewed & are unremarkable except as noted in HPI and below Exam Const: General: comfortable and no acute distress Orientation/consc iousness: patient oriented x3 Resp: Effort & Inspection: normal respiratory effort
[2024-07-07 06:00] LABS: Hematocrit 33.3 % (37.0-47.0); Hemoglobin 10.9 g/dL (12.0-15.0)
[2024-07-07] MEDS: MULTIVIT/MIN/PREN/FOL AC/IRON TABLET 1 TAB PO (08:31)
--- NOTE | 2024-07-07 15:51 | PC.NURSE ---
1430. Attempted to consult with mom for needs. Mom with 4 visitors at this time. Mom encouraged to call out with infants next feeding to review latch and discuss her feeding journey so far. Mom verbalized understanding.
[2024-07-07] MEDS: DOCUSATE SODIUM 100 MG CAPSULE PO (16:21)
--- NOTE | 2024-07-07 17:18 | PC.NURSE ---
1700. Consulted with patient to assess needs related to . Discussed with mother her successes, concerns and any questions she has. We reviewed working with the , supporting breast, protecting her nipples with an optimal deep latch, good positioning, and good hand washing. Encouraged understanding the benefits of skin to skin, responding to feeding cues, frequencies of feeding 8-12 times in 24 hours (approximately 2-3 hours), duration of feedings, milk production, intake/output feeding sheet and signs of adequate intake encouraging swallowing at the breast. Reviewed positioning and alignment, supporting breast, off-centered (asymmetrical latch) and leading with the chin with big, open, wide gape. Education given to the mother of how to visualize the suckling (with good rocking jaw motion) swallows (dropping of the lower jaw) and how to listen for drinking at the breast (the ka sound). The was not able to maintain latch at this time, mom reports she fed 10 ml of a bottle at 1620. Reviewed early feeding cues with handout and explained to mom to call out with next feeding cues if she needs helps latching . Nipple care reviewed with optimal latch, good positioning and using clean hands when touching her breast. Resources used to facilitate learning were used from the visual handouts for latching , storing breastmilk, and milk production. Mother voiced understanding of the education shared, to call for assistance if the infant does not latch or if there is discomfort with . Reported to the Primary RN.
[2024-07-07] MEDS: ACETAMINOPHEN 325 MG TABLET 650 MG PO (18:41)
--- NOTE | 2024-07-07 18:52 | WPDANLDPN2 ---
Anes-Prog Note L&D Date/Time: 07/07/24 18:52 Comfortable throughout: labor and delivery Neuraxial method: epidural Epidural/Spinal procedure site: clean & non-tender Neuro status: Neuro function grossly intact. Cardiovascular status: normal Respiratory status: normal Airway patency: baseline Mental status: baseline Post-Op hydration status: normal Vital Signs: Last Vital Signs Temp 36.6 C 07/07/24 16:00 Pulse 84 07/07/24 16:00 Resp 17 07/07/24 16:00 BP 105/68 07/07/24 16:00 Pulse Ox 99 07/07/24 16:00 O2 Del Method Room Air 07/07/24 16:00 Pain score (VAS): 09/19 I/O: Intake & Output 07/07/24 07/07/24 07/07/24 07:59 15:59 23:59 Intake Total 500 Output Total 700 Balance -700 500 Post-procedural complaints: none Patient feedback: Patient satisfied with anesthetic care.
[2024-07-08] MEDS: IBUPROFEN 600 MG TABLET PO (04:52)
[2024-07-08] MEDS: DOCUSATE SODIUM 100 MG CAPSULE PO (07:23)
[2024-07-08] MEDS: MULTIVIT/MIN/PREN/FOL AC/IRON TABLET 1 TAB PO (07:23)
[2024-07-08 08:25] VITALS: BP 113/72; PULSE 65; RESP 16; TEMP 36.6; O2SAT 99
--- NOTE | 2024-07-08 09:25 | PC.NURSE ---
Consulted with mother concerning needs and she shared her ability to independently latch infant optimally without pain. Mother is feeding appropriately for growth of and understands stimulating to eat if needed. Infant has had appropriate feedings in the last 24 hours meets the outcomes for weight, output, blood sugar and jaundice at this time. She is mostly bottle feeding, but pumping and sometimes. She has a pump at home. Reinforced understanding of milk production, transition of milk, signs of adequate intake, transition of stool, prevention/relief of engorgement, plugged ducts, mastitis, responsive watching for feeding cues, the different methods of stimulating infant to breastfeed 1-3 hours after the start of the last feeding, community resources, and when to call a provider using the resource of the feeding sheet along with the mom and baby guide. Mother voiced understanding of the information shared, is confident to continue effectively her at home, when to call for assistance, denies any additional assistance or education at this time. Reported to the Primary RN.
--- NOTE | 2024-07-08 09:44 | P.DS_ITS ---
DS: Admitting Diagnosis Discharge Date 07/08/24 Admitting Diagnosis Term , labor DS: Discharge Diagnosis Discharge Diagnosis (1) Term delivered: Code(s): O80 - Encounter for full-term uncomplicated delivery Status: Acute OB - DS: Summary OB Procedures : None OB Procedures Intrapartum: Spontaneous Vag Delivery OB Procedures: : None Peripartum Data Laceration Description: Perineal - 2nd Degree and Labial (right) Episiotomy description: None Time Spent with Patient Time attestation: Total time spent providing and/or coordinating discharge services: Discharge Plan Discharge Discharging Clinician: Dashawn Horn Patient Disposition: Home, Self-Care Activity: pelvic rest Diet: regular Discharge Instructions: Education: Mom and Baby Guide Given to: Follow-Up: Call your delivering provider's office for an appointment to be seen in: Mom and baby should come to the [facility] for the follow-up appointment. Appointment Date/Time: at What to expect at your follow-up visit: Call [phone] if you are unable to keep your appointment time. BREAST CARE: * Wear a snug supportive bra. * For engorgement discomfort: Breast Feeding: * Apply warm moist washcloths * Express milk as needed to relieve engorgement * Wear loose clothing Bottle Feeding: * May apply ice packs * For sore nipples: * Identify correct latch-on * Apply warm moist washcloths before and after nursing * Air dry nipples after nursing * May apply Lansinoh cream to nipples ABDOMINAL INCISION: (if applicable) * Allow incision to air dry * Do NOT use lotions for powders on your incision * When showering, allow soap and water to run over the incision, but do not wash incision EPISIOTOMY/PERINEAL CARE: * Until bleeding stops, use your es bottle after urinating * Change your pad frequently throughout the day * You may take sitz baths several times a day (fill your bathtub with warm water and soak for 20 minutes.) Do NOT bathe in the water * No tub baths until seen by your physician - You may shower ACTIVITY: * Rest as much as possible. * Do not exercise or lift anything heavier than your baby (such as laundry or other children.) * Avoid stairs or driving as much as possible. * Do not put anything into the vagina. No douching, tampons, or sexual activity until seen by physician. NOTIFY PHYSICIAN IF YOU HAVE ANY QUESTIONS OR IF ANY OF THE FOLLOWING SYMPTOMS OCCUR: * If your episiotomy or incision becomes red, swollen, or more painful than what you have experienced in the hospital. * If your vaginal bleeding becomes foul smelling. * If your vaginal bleeding becomes more heavy than a period or if your bleeding changes from pink to bright red. However, you may pass an occasional walnut- sized clot once or twice for the first week . * If you experience a sharp, shooting pain in you calves. * If you discover a hard, reddened area on your breast or if you experience flu- like symptoms. DIET: * Eat regular, well-balanced meals. * Drink plenty of fluids daily. If , drink to thirst. Patient Instructions: Antibiotic Form, Caring for Your Baby (DC), Your Baby (DC), Vaginal Delivery (DC) Stand Alone Forms: General Discharge Information Follow-up/Referrals: Dashawn Horn MD [Physician] - Discharge Medications: Continued DHA 200 mg Capsule 1 mg PO DAILY Date of admission: 07/06/24 03:09 Primary Care Provider: PHYSICIAN,MARKETING ASSOCIATE Admitting Provider: Omkar March Attending physician on admission: Omkar March Condition: Stable
--- NOTE | 2024-07-08 09:44 | PM.OBPNVD ---
OB - PN: Subj Subjective Date/time seen: 07/08/24 09:44 Interval history: PPD#1 Doing well, pain well controlled Tolerating general diet Voiding without issue , latching well, discussed hand expression of colostrum Patient comments: no complaints, pain well controlled and tolerating diet OB - PN: Obj Data Labs 07/07/24 05:45 OB - PN A/P Plan day: 2 Plan: routine care and discharge home Time Spent With Patient Time: Total time spent is greater than 50% in coordination of care (as documented) at patient's floor/unit and/or counseling patient: Exam Const: General: comfortable and no acute distress Resp: Effort & Inspection: normal respiratory effort Auscultation: no rales, no rhonchi and no wheezes Cardio: Rate: regular rate Heart sounds: no click, no murmurs and no rubs GI: GI Palp: Yes Soft to palpation and No Tenderness to palpation present (GI) Auscultation: normal bowel sounds Extrem: General: normal to inspection, no pedal edema and no calf tenderness
== END 2024-07-08 13:38 | disposition home or self-care (01) | DRG 807 ==
LOC: ANHLDR 18:13 → ANHOB2 07-08 09:45 → ANHLDR 07-09 10:14 → ANHOB2 07-09 10:14
PROVIDERS: Admitting Provider Obstetrics & Gynecology; Visit Provider Obstetrics & Gynecology
DX: O36.8330 Maternal care for abnormalities of the fetal heart rate or rhythm, third trimester, not applicable or unspecified (principal); Z37.0 Single live birth; Z3A.38 38 weeks gestation of pregnancy; O69.81X0 Labor and delivery complicated by cord around neck, without compression, not applicable or unspecified; O70.1 Second degree perineal laceration during delivery
CPT/HCPCS: 36415; 85014; 85018; 85025; 85055; 86592; 86703; 86850; 86900; 86901; A9270; G0432; J2590; J2795; J3010; J7120